=== PATIENT | female | born 1985 | race Caucasian/White ===

== ENCOUNTER 2017-10-18 23:04 | Inpatient (IN) | payer OTHER ==
[2017-10-18] MEDS ORDERED: LIDOCAINE 1% 300 MG/30 ML SDV SC PRN (23:32)
[2017-10-18] MEDS ORDERED: EPSOM SALT 454 GM TP PRN (23:32)
[2017-10-18] MEDS ORDERED: LR 1,000 ML IV PRN (23:32)
[2017-10-18] MEDS ORDERED: MISOPROSTOL 200 MCG TAB PR PRN (23:32)
[2017-10-18] MEDS ORDERED: TERBUTALINE SULFATE 1 MG/ML VIAL IV PRN (23:32)
[2017-10-18] MEDS ORDERED: OXYTOCIN/RINGERS LACTATE 1,000 ML IV PRN (23:32)
[2017-10-18] MEDS ORDERED: OLIVE OIL 118 ML BTL MISC PRN (23:32)
[2017-10-18] MEDS ORDERED: AMPICILLIN SODIUM 2 GM in NS 100 ML IV ONE (23:32)
[2017-10-18] MEDS ORDERED: IBUPROFEN 600 MG TAB PO PRN (23:32)
[2017-10-18 23:48] LABS: PLATELET COUNT 198 10^3/uL (150-400)
[2017-10-19] MEDS ORDERED: OXYTOCIN 10 UNIT/ML VIAL ONE (00:03)
[2017-10-19] MEDS ORDERED: MISOPROSTOL 200 MCG TAB ONE (00:03)
[2017-10-19] MEDS ORDERED: OLIVE OIL 118 ML BTL ONE (00:03)
[2017-10-19] MEDS ORDERED: AMMONIA AROMATIC 1 EACH AMP IH ONE (00:03)
[2017-10-19] MEDS ORDERED: TERBUTALINE SULFATE 1 MG/ML VIAL ONE (00:03)
[2017-10-19] MEDS ORDERED: LIDOCAINE 1% 300 MG/30 ML SDV ONE (00:03)
--- NOTE | 2017-10-19 00:26 | PDGENHP ---
History and Physical History and Physical: CARE: [facility] HPI: Basilia is a [id number] with IUP@39-6wks that presents to L&D with complaints of contractions. She states they started this morning at 1030 but have progressively got stronger. she states she is only having them q 6-10min but is having to breathe through them. She denies any LOF, VB. She reports +FM. EDC: 10/20/2017 which is based on LMP: 01/13/17 which is known and consistent with Ultrasound at 5weeks. Her is complicated by: TAD @ 32wks, prior c/s with prior , h/o pre eclampsia with G1, h/o PTD (2/2 severe pre-eclampsia) Review of Systems: Constitutional: Denies any fever, chills, or fatigue HEENT: denies any visual changes, difficulty swallowing, hearing loss Cardiovascular: Denies any chest pain, palpitations, leg swelling Respiratory: denies any cough, wheezing, or shortness of breathe GI: Denies any nausea, vomiting, diarrhea, constipation : denies any dysuria, urgency, frequency, vaginal bleeding Musculoskeletal: denies any muscle or bone pain Skin: denies any rashes Neuro: denies any headache, seizures, lightheadedness, dizziness, or loss of consciousness Psychiatric: denies any depression, anxiety, or SI/HI thoughts HISTORY: Previous OB history: PTD @ 35wks via c/s (severe pre eclampsia), Past medical history: noncontributory Past surgical history: c/s, breast augmentation Medications: PNV, folic acid, probiotic Allergies (list reaction): NKDA LABS: Rh: A+ ABS: Neg Rubella: Immune HbsAg: NR HIV: NR VDRL: NR 1hr: 81 GC: Neg Chlamydia: Neg Pap: Normal GBS: + PHYSICAL EXAM: Constitutional: WN, A&Ox3 HEENT: normocephalic atraumatic, supple Heart: RRR, no murmur Chest: CTA-B Abdomen: Soft, nontender, gravid SVE: 4/80/-2 Extremities: no edema, negative homans sign Neuro: grossly normal Psych: normal affect assessment: Reassuring FHTs, baseline 120 +accels, no decels, moderate variability Contractions: toco q 6-8 Assessment: 1) 32 yo with IUP@ 39-6wks 2) early labor 3) GBS + 4) Cat 1 FHR tracing 5) TOLAC Plan: 1) Admit to L&D 2) IV abx 3) augment labor/AROM PRN 4) hydrotherapy 5) anticipate 6) Jeffrey Quintero- aware and agrees with plan of care
--- NOTE | 2017-10-19 02:41 | OBPROG ---
Labor Progress Note Assessment/Plan: Assessment: [id number] with IUP@39-6wks Early labor GBS + SROM @ 0208- clear cat 2 FHR Tracing Plan: cont expectant management Pitocin PRN pain management PRN anticipate 10/19/17 02:38 Subjective/Intrapartum Course: 10/19/17 02:39 Pt doing well, she reports more pain with contractions. Denies any pressure. She is breathing through contractions. She is OOB/ambulating/using ball. Family @ BS- supportive Objective: 10/18/17 23:39 Patient ABO/Rh A POSITIVE 10/18/17 23:39 - SVE Dilation (cm): 4 Effacement (%): 80 Station: -1 Membranes: SROM Amniotic Fluid Color: Clear - Contraction Pattern Assessment Current Contraction Pattern: Regular - FHR Assessment Cat FHR (bpm): 130 (prolong decel x 5 min, [place] to 80) FHR Pattern Variability: Moderate FHR Category: 2 Oxytocin Orders Assessment - Pre-Induction/Augmentation Assessment Gestational Age: 39 week(s) and 5 day(s) ICD10 Worksheet Patient Problems: Problems Problem Status Onset H/O section Acute H/O vaginal after Acute Labor and delivery, indication for care Acute Positive GBS test Acute - ICD10 Problem Qualifiers (1) H/O vaginal after (2) H/O section (3) Positive GBS test (4) Labor and delivery, indication for care
[2017-10-19] MEDS ORDERED: PHENYLEPHRINE HCL 100 MCG/ML SYR ONE (03:37)
[2017-10-19] MEDS ORDERED: fentaNYL 200 MCG, BUPIVACAINE 0.5% 20 ML in NS 100 ML EP SCH (04:00)
--- NOTE | 2017-10-19 04:16 | PREANESOB ---
Obstetric Pre-Anesthesia Info - General Info Proposed Procedure: Labor Epidural : 3 Para: 2 ESTELLA: 10/20/17 Gestational Age: 39 week(s) and 5 day(s) - Labor Status Cervical Dilation per last OB SVE: 4 Station per last OB SVE: -1 Amniotic Fluid Color: Clear Anesthesia Allergies/Adverse Reactions: Allergy/AdvReac Type Severity Reaction Status Date / Time No Known Allergies Allergy Verified 10/18/17 23:30 Visit Medications: Generic Name Dose Route Start Last Admin Trade Name Freq PRN Reason Stop Dose Admin Ampicillin Sodium 1 gm/ Sodium 100 mls @ 200 mls/hr 10/18/17 23:45 Chloride IV 11/17/17 23:44 Q4H [facility] Protocol Lactated Ringer's 1,000 mls @ 0 mls/hr 10/18/17 23:32 Lr IV 10/19/17 23:31 PRN PRN SEE PROTOCOL CONDITIONS Protocol Per Protocol Oxytocin/Lactated Ringer's 1,000 mls @ 125 mls/hr 10/18/17 23:32 Pitocin 20 Units/Lr (Premix) IV PRN PRN Post bleeding Fentanyl 200 mcg/ Bupivacaine 100 mls @ 0 mls/hr 10/19/17 04:00 HCl 20 ml/ Sodium Chloride EP 10/29/17 03:59 CONT [facility] Protocol As Directed Ibuprofen 600 mg 10/18/17 23:32 Motrin PO ONCE PRN post , pain Lidocaine HCl 300 mg 10/18/17 23:32 Lidocaine Hcl 1% SC 04/16/18 23:31 ONCE PRN episiotomy Magnesium Sulfate 454 gm 10/18/17 23:32 Epsom Salt TP 04/16/18 23:31 Q1H PRN perineal discomfort Misoprostol 800 - 1,000 mcg 10/18/17 23:32 Cytotec [place] ONCE PRN Vaginal Atony/Bleeding Niland Oil 118 ml 10/18/17 23:32 Sweet Oil MISC 04/16/18 23:31 ONCE PRN perineal massage Terbutaline Sulfate 0.25 mg 10/18/17 23:32 Brethine IV 04/16/18 23:31 ONCE PRN Tachysystole Discontinued Medications Generic Name Dose Route Start Last Admin Trade Name Freq PRN Reason Stop Dose Admin Ammonia (Aromatic Spirit) Confirm 10/19/17 00:03 Ammonia Aromatic Administered 10/19/17 00:04 Dose 1 each IH .STK-MED ONE Ephedrine Sulfate Confirm 10/19/17 03:37 Ephedrine Sulfate Administered 10/19/17 03:38 Dose 50 mg .ROUTE .STK-MED ONE Ampicillin Sodium 2 gm/ Sodium 110 mls @ 220 mls/hr 10/18/17 23:32 10/18/17 23:59 Chloride IV 10/19/17 00:01 110 mls ONCE ONE Administration Protocol Lidocaine HCl Confirm 10/19/17 00:03 Lidocaine Hcl 1% Administered 10/19/17 00:04 Dose 300 mg .ROUTE .STK-MED ONE Misoprostol Confirm 10/19/17 00:03 Cytotec Administered 10/19/17 00:04 Dose 1,000 mcg .ROUTE .STK-MED ONE Niland Oil Confirm 10/19/17 00:03 Sweet Oil Administered 10/19/17 00:04 Dose 118 ml .ROUTE .STK-MED ONE Oxytocin Confirm 10/19/17 00:03 Pitocin Administered 10/19/17 00:04 Dose 40 unit .ROUTE .STK-MED ONE Phenylephrine HCl Confirm 10/19/17 03:37 Neosynephrine Administered 10/19/17 03:38 Dose 1,000 mcg .ROUTE .STK-MED ONE Terbutaline Sulfate Confirm 10/19/17 00:03 Brethine Administered 10/19/17 00:04 Dose 1 mg .ROUTE .STK-MED ONE - Vital Signs Height/Weight (Nursing): Height 167.64 cm Weight 79.379 kg - Focused Exam Neck exam: FROM Mallampati Score: Class 1 Mouth exam: normal dental/mouth exam Pulmonary: no respiratory distress Cardiovascular: regular rate and rhythym Labs: 10/18/17 23:39 Patient ABO/Rh A POSITIVE 10/18/17 23:39 - Plan Consent Signed and on Chart: Yes Urgent/Emergent Case: Anes eval completed preop but documented later for safe timely pt care
[2017-10-19] MEDS ORDERED: LR 500 ML IV SCH (04:30)
[2017-10-19] MEDS ORDERED: fentaNYL 2MCG/ML/BUP 0.1% RTU 100 ML EP SCH (04:30)
[2017-10-19] MEDS: AMPICILLIN SODIUM 1 GM in NS 100 ML IV SCH ×3 (04:52→19:08)
--- NOTE | 2017-10-19 05:55 | OBPROG ---
Labor Progress Note Assessment/Plan: Assessment: [id number] with IUP@39-6wks Labor GBS + SROM @ 0208- clear cat 2 FHR Tracing Plan: cont expectant management pain management PRN anticipate Subjective/Intrapartum Course: 10/19/17 02:39 Pt doing well, she reports more pain with contractions. Denies any pressure. She is breathing through contractions. She is OOB/ambulating/using ball. Family @ BS- supportive 10/19/17 05:50 Pt comfortable with KEATON, She is concerned about lack of progress. Will now try to relax and rest now that she is comfortable. She denies use of pitocin at this time. Objective: 10/18/17 23:39 Patient ABO/Rh A POSITIVE 10/18/17 23:39 - SVE Dilation (cm): 5 Effacement (%): 80 Station: -1 Membranes: SROM Amniotic Fluid Color: Clear - Contraction Pattern Assessment Current Contraction Pattern: Regular - FHR Assessment Cat FHR (bpm): 135 (variables, and lates noted- resolved with position changes) FHR Pattern Variability: Moderate FHR Category: 2 - Procedures Non-surgical Procedures: IUPC Oxytocin Orders Assessment - Pre-Induction/Augmentation Assessment Gestational Age: 39 week(s) and 5 day(s) ICD10 Worksheet Patient Problems: Problems Problem Status Onset H/O section Acute H/O vaginal after Acute Labor and delivery, indication for care Acute Positive GBS test Acute - ICD10 Problem Qualifiers (1) H/O vaginal after (2) H/O section (3) Positive GBS test (4) Labor and delivery, indication for care
[2017-10-19] MEDS ORDERED: fentaNYL 100 MCG/2 ML INJ ONE (07:42)
[2017-10-19] MEDS ORDERED: SIMETHICONE 80 MG TAB CHEW PO PRN (07:51)
[2017-10-19] MEDS ORDERED: DOCUSATE SODIUM 100 MG CAP PO PRN (07:51)
[2017-10-19] MEDS ORDERED: HYDROCODONE/APAP 5/325 TAB PO PRN (07:51)
[2017-10-19] MEDS ORDERED: HYDROCORTISONE 0.5% CREAM TP PRN (07:51)
[2017-10-19] MEDS ORDERED: MISOPROSTOL 200 MCG TAB PR ONE (09:30)
--- NOTE | 2017-10-19 09:52 | OBDEL ---
Info Type: Vaginal Presentation at Delivery: Vertex L&D Analgesia/Anesthesia Type: Epidural GBS+: Yes Antibiotic Used for + GBS: Ampicillin Intrapartum Medications: Generic Name Dose Route Start Last Admin Trade Name Alba PRN Reason Stop Dose Admin Ampicillin Sodium 1 gm/ Sodium 100 mls @ 200 mls/hr 10/18/17 23:45 10/19/17 04:52 Chloride IV 11/17/17 23:44 100 mls Q4H SHAYE Administration Protocol Discontinued Medications Generic Name Dose Route Start Last Admin Trade Name Freda PRN Reason Stop Dose Admin Ampicillin Sodium 2 gm/ Sodium 110 mls @ 220 mls/hr 10/18/17 23:32 10/18/17 23:59 Chloride IV 10/19/17 00:01 110 mls ONCE ONE Administration Protocol Oxytocin/Lactated Ringer's 1,000 mls @ 125 mls/hr 10/18/17 23:32 10/19/17 08: 15 Pitocin 20 Units/Lr (Premix) IV 1,000 mls PRN PRN Administration Post bleeding - Hospital Course Intrapartum: 10/19/17 02:39 Pt doing well, she reports more pain with contractions. Denies any pressure. She is breathing through contractions. She is OOB/ambulating/using ball. Family @ BS- supportive 10/19/17 05:50 Pt comfortable with KEATON, She is concerned about lack of progress. Will now try to relax and rest now that she is comfortable. She denies use of pitocin at this time. Indications for Delivery: Spontaneous Labor, SROM Vaginal Delivery - Delivery Provider Delivery Physician/CNM: Ashlee Cerda - Labor and Delivery Onset of Contractions Date: 10/18/17 Onset of Contractions Time: 08:30 Onset of Contractions Type: Spontaneous Rupture of Membranes Date: 10/19/17 Rupture of Membranes Time: 02:08 Rupture of Membranes Type: Spontaneous (tracing was noted to be havinng lates and pt was repositioned multiple times) Amniotic Fluid Color: Clear Dilation Complete Date: 10/19/17 Dilation Complete Time: 07:34 Placenta Delivery Date: 10/19/17 Placenta Delivery Time: 07:43 Total Hours of Labor: 23 Non-surgical Procedures: FSE, IUPC Cord Gases: Cord Gases Cord Blood PCO2 56.6 mmHg (37-60) 10/19/17 07:38 Cord Base Excess -5.2 mEq/L (-13.6--3.2) 10/19/17 07:38 Cord ABG pH 7.25 (7.10-7.37) 10/19/17 07:38 Cord VBG pH 7.33 (7.20-7.42) 10/19/17 07:38 Operative Report - Delivery Cord Gases: Cord Gases Cord Blood PCO2 56.6 mmHg (37-60) 10/19/17 07:38 Cord Base Excess -5.2 mEq/L (-13.6--3.2) 10/19/17 07:38 Cord ABG pH 7.25 (7.10-7.37) 10/19/17 07:38 Cord VBG pH 7.33 (7.20-7.42) 10/19/17 07:38 [place] Data ESTELLA: 10/20/17 Gestational Age: 40 week(s) and 6 day(s) Cat Delivery Date: 10/19/17 Delivery Time: 07:38 Sex of Infant: Male [place] Weight (gm): 3610 kg ICD10 Worksheet Patient Problems: Problems Problem Status Onset H/O section Acute H/O vaginal after Acute , delivered, current hospitalization Acute - ICD10 Problem Qualifiers (1) H/O vaginal after (2) H/O section (3) Positive GBS test (4) Labor and delivery, indication for care
[2017-10-19] MEDS ORDERED: OXYTOCIN/RINGERS LACTATE 1,000 ML IV ONE (10:00)
[2017-10-19] MEDS: IBUPROFEN 600 MG TAB PO SCH ×4 (10:11→23:59)
[2017-10-19] MEDS: ACETAMINOPHEN 325 MG TAB PO SCH ×3 (10:15→23:59)
--- NOTE | 2017-10-19 14:00 | POSTANESTH ---
Post Anesthetic Evaluation Cardiovascular Status: Normal, Stable, Similar to Pre-Op Cond Respiratory Status: Normal, Stable, Similar to Pre-op Cond. Level of Consciousness/Mental Status: Can Participate in Eval, Alert and Oriented Pain Control: Adequate, Prn Tx Ordered Nausea/Vomiting Control: Adequate, Prn Tx Ordered Complications Possibly Related to Anesthesia: None Noted (Doing well post delivery, epidural catheter removed intact, up and walking, no paresthesias or headache.)
[2017-10-20] MEDS: ACETAMINOPHEN 325 MG TAB PO SCH ×3 (03:25→19:17)
[2017-10-20] MEDS: IBUPROFEN 600 MG TAB PO SCH ×4 (03:25→20:24)
--- NOTE | 2017-10-20 09:19 | OBPP ---
Progress Note Assessment/Plan: Assessment: PPD 1 s/p successful , now P3 +GBS heavy PP bleeding, stable Plan: Pt desires d/c 10/20/17 09:15 Subjective/ Course: 10/20/17 09:16 Pt doing well. working on BF. Desires d/c. Bld is lessened. urinating fine. Using ibu prn. Objective: 10/18/17 23:39 Patient ABO/Rh A POSITIVE 10/18/17 23:39 Temp Pulse Resp BP Pulse Ox 36.3 C 58 L 16 98/66 L 96 10/19/17 20:00 10/20/17 08:00 10/20/17 08:00 10/20/17 08:00 10/20/17 08:00 Uterine Position/Fundal Height: Umbilicus -2 Uterine Tone: Firm Physical Exam - Physical Exam Abdomen: non-tender, soft, other (FF at umb -2, lochia scant) Extremities: non-tender, pedal edema (mild) Skin: normal color, warm/dry Neuro/Psych: alert, normal mood/affect
--- NOTE | 2017-10-20 09:21 | OBGCSDC ---
General Delivery Information - General Info : 3 Para: 3 Abortions: 0 Type: Vaginal L&D Analgesia/Anesthesia Type: Epidural Admission Date: 10/18/17 Labs: Patient ABO/Rh A POSITIVE 10/18/17 23:39 Hct 38.6 % (38.0-47.0) 10/18/17 23:39 - Hospital Course Intrapartum: 10/19/17 02:39 Pt doing well, she reports more pain with contractions. Denies any pressure. She is breathing through contractions. She is OOB/ambulating/using ball. Family @ BS- supportive 10/19/17 05:50 Pt comfortable with KEATON, She is concerned about lack of progress. Will now try to relax and rest now that she is comfortable. She denies use of pitocin at this time. : 10/20/17 09:16 Pt doing well. working on BF. Desires d/c. Bld is lessened. urinating fine. Using ibu prn. Vaginal - Delivery Provider Delivery Physician/CNM: Ashlee Cerda - Diagnosis Labor: Spontaneous Rupture of Membranes Type: Spontaneous (tracing was noted to be havinng lates and pt was repositioned multiple times) Amniotic Fluid Color: Clear - Procedures Non-surgical Procedures: FSE, IUPC - Delivery Non-surgical Procedures: FSE, IUPC Data ESTELLA: 10/20/17 Gestational Age: 40 week(s) and 0 day(s) Cat Delivery Date: 10/19/17 Delivery Time: 07:38 Sex of Infant: Male [place] Weight (gm): 3610 kg Score (1 Min): 8 Score (5 Min): 9 Discharge Information - Discharge Information Condition: Good Instruction/Follow Up: See Instruction Sheet, Four Weeks (with therapist), Six Weeks (with Robert Cerda)
[2017-10-21] MEDS: ACETAMINOPHEN 325 MG TAB PO SCH ×3 (01:25→13:27)
[2017-10-21] MEDS: IBUPROFEN 600 MG TAB PO SCH ×2 (04:08→13:27)
[2017-10-21 10:41] VITALS: BP 123/77
--- NOTE | 2017-10-21 12:52 | OBPP ---
Progress Note Assessment/Plan: Assessment: s/p PPD # 2 - pt is stable Plan: Plan for d/c home today Instructions reviewed with pt No Rx given Cont PNV and colace Pelvic rest RTO-CNM in 2 weeks for a pp visit 10/21/17 12:50 Subjective/ Course: 10/20/17 09:16 Pt doing well. working on BF. Desires d/c. Bld is lessened. urinating fine. Using ibu prn. 10/21/17 12:51 Pt seen and examined. Doing well with no complaints. Minimal cramping. Took Motrin last night. Mod lochia. Pt is OOB, varun regular diet, voiding and BM x 1. BF is going well. Ready to go home today. Objective: 10/18/17 23:39 Patient ABO/Rh A POSITIVE 10/18/17 23:39 Temp Pulse Resp BP Pulse Ox 36.7 C 78 16 123/77 H 95 10/21/17 08:00 10/21/17 08:00 10/21/17 08:00 10/21/17 08:00 10/20/17 20:00 Uterine Position/Fundal Height: Umbilicus -2 Uterine Tone: Firm Physical Exam - Physical Exam General Appearance: alert, no apparent distress, mild distress Respiratory: lungs clear, normal breath sounds Cardiac/Chest: regular rate, rhythm Abdomen: normal bowel sounds, non-tender, soft, flatus (+) Extremities: non-tender, normal inspection Skin: normal color, warm/dry Neuro/Psych: alert, normal mood/affect, oriented x 3
--- NOTE | 2017-10-21 12:53 | OBGCSDC ---
General Delivery Information - General Info : 3 Para: 3 Abortions: 0 Type: Vaginal L&D Analgesia/Anesthesia Type: Epidural Admission Date: 10/18/17 Labs: Patient ABO/Rh A POSITIVE 10/18/17 23:39 Hct 38.6 % (38.0-47.0) 10/18/17 23:39 - Hospital Course Intrapartum: 10/19/17 02:39 Pt doing well, she reports more pain with contractions. Denies any pressure. She is breathing through contractions. She is OOB/ambulating/using ball. Family @ BS- supportive 10/19/17 05:50 Pt comfortable with KEATON, She is concerned about lack of progress. Will now try to relax and rest now that she is comfortable. She denies use of pitocin at this time. : 10/20/17 09:16 Pt doing well. working on BF. Desires d/c. Bld is lessened. urinating fine. Using ibu prn. 10/21/17 12:51 Pt seen and examined. Doing well with no complaints. Minimal cramping. Took Motrin last night. Mod lochia. Pt is OOB, varun regular diet, voiding and BM x 1. BF is going well. Ready to go home today. Vaginal - Delivery Provider Delivery Physician/ERIC: Ashlee Cerda - Diagnosis Labor: Spontaneous Rupture of Membranes Type: Spontaneous (tracing was noted to be havinng lates and pt was repositioned multiple times) Amniotic Fluid Color: Clear - Procedures Non-surgical Procedures: FSE, IUPC - Delivery Non-surgical Procedures: FSE, IUPC [place] Data ESTELLA: 10/20/17 Gestational Age: 40 week(s) and 1 day(s) Cat Delivery Date: 10/19/17 Delivery Time: 07:38 Sex of Infant: Male Weight (gm): 3610 kg Score (1 Min): 8 Score (5 Min): 9 Discharge Information - Discharge Information Condition: Good Instruction/Follow Up: See Instruction Sheet, Two Weeks (with CNM-Ashlee Cerda) , Four Weeks (with therapist), Six Weeks (with Robert Cerda)
== END 2017-10-21 13:27 | disposition home or self-care (01) | DRG 775 ==
LOC: FLD 23:04 → FOB 10-19 13:32
PROVIDERS: ADMIT Advanced Practice Midwife; ATTEND Advanced Practice Midwife
PROC: 10E0XZZ Delivery of Products of Conception, External Approach (ICD-10-PCS; principal; 2017-10-19)
DX: O60.23X0 Term delivery with preterm labor, third trimester, not applicable or unspecified (principal); Z37.0 Single live birth; O99.824 Streptococcus B carrier state complicating childbirth; Z3A.40 40 weeks gestation of pregnancy; O34.211 Maternal care for low transverse scar from previous cesarean delivery
CPT/HCPCS: J0290; J2370; J2590; J3010; J3105